=== PATIENT | male | born 1965 | race Caucasian/White ===

== ENCOUNTER 2016-10-25 11:39 | Emergency (ER) | payer OTHER | END 2016-10-25 11:41 | disposition left against medical advice (07) | LOC: CED 11:39 | DX: Z53.21 Procedure and treatment not carried out due to patient leaving prior to being seen by health care provider (principal) ==

== ENCOUNTER → 2017-10-30 | Outpatient (CLI) | payer BC | LOC: BMCIMAGING 14:13 | PROVIDERS: ATTEND Podiatrist Foot & Ankle Surgery | DX: M19.072 Primary osteoarthritis, left ankle and foot (principal); M77.32 Calcaneal spur, left foot; M76.62 Achilles tendinitis, left leg; Z87.81 Personal history of (healed) traumatic fracture ==

== ENCOUNTER → 2018-04-23 | Outpatient (CLI) | payer BC | LOC: BMCIMAGING 13:53 | PROVIDERS: ATTEND Podiatrist Foot & Ankle Surgery | DX: M19.071 Primary osteoarthritis, right ankle and foot (principal) ==